=== PATIENT | female | born 1990 | race Caucasian/White ===

== ENCOUNTER 2017-02-17 15:05 | Emergency (ER) | payer BC, MEDICAID ==
[2017-02-17 15:05] VITALS: BMI 26.9
[2017-02-17 15:50] VITALS: O2SAT 99
--- NOTE | 2017-02-17 16:23 | C.PDOC ---
History Of Present Illness 26 yr old female presents to the ER with complaints of a headache for the past 3 days. States its intermittent, bilateral temporal. Patient states she gets headache once a week but current headache is more prolonged than usual, associated with nausea. Patient states no relief with Advil, 1tab. Reports last dose was yesterday. Otherwise, denies fever, vision changes, vomiting, neck pain , weakness or numbness. LOPEZ X 3 DAYS. INTERMIT B/L TEMPORAL. PS GETS LOPEZ ONCE A WEEK BUT CURRENT LOPEZ MORE PROLONGED THAN USUAL. +NAUSEA. NO RELIEVE W ALEVE 1 TAB. LAST DOSE YEST. 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 Time Seen by Provider: 02/17/17 16:03 Chief Complaint (Nursing): Headache History Per: Patient History/Exam Limitations: no limitations Onset/Duration Of Symptoms: Days (3) Current Symptoms Are (Timing): Still Present Past Medical History Reviewed: Historical Data, Nursing Documentation, Vital Signs Vital Signs: Last Vital Signs Temp 98.6 F 02/17/17 15:47 Pulse 82 02/17/17 15:47 Resp 18 02/17/17 15:47 BP 111/78 02/17/17 15:47 Pulse Ox 99 02/17/17 16:57 - Medical History PMH: Anemia - [facility] Procedures DELIVERY OF PRODUCTS OF CONCEPTION, EXTERNAL APPROACH (07/18/15) MANUAL ASSIST DELIV NEC (11/05/13) Family History: States: No Known Family Hx - Social History Hx Alcohol Use: No Hx Substance Use: No Review Of Systems Except As Marked, All Systems Reviewed And Found Negative. Constitutional: Negative for: Fever Eyes: Negative for: Vision Change Gastrointestinal: Positive for: Nausea. Negative for: Vomiting Musculoskeletal: Negative for: Neck Pain Neurological: Positive for: Headache. Negative for: Weakness, Numbness Physical Exam - Physical Exam Appears: Non-toxic, In Acute Distress (Mild) Eye(s): bilateral: Normal Inspection, PERRL, EOMI Ear(s): Bilateral: Normal Neck: Normal, Normal ROM, Supple Chest: Symmetrical, No Tenderness Cardiovascular: Rhythm Regular, No Murmur Respiratory: Normal Breath Sounds, No Rales, No Rhonchi, No Stridor, No Wheezing Extremity: Normal ROM, No Swelling Neurological/Psych: Oriented x3, Normal Speech, Normal Motor ED Course And Treatment O2 Sat by Pulse Oximetry: 99 (RA) Pulse Ox Interpretation: Normal - CT Scan/US CT - Head Other Rad Studies (CT/US): Read By Radiologist, Radiology Report Reviewed CT/US Interpretation: PROCEDURE: CT HEAD WITHOUT CONTRAST. HISTORY: HEADACHE. COMPARISON: None available. TECHNIQUE: Axial computed tomography images were obtained through the head/brain without intravenous contrast. Radiation dose: Total exam DLP = 754.32 mGy-cm. This CT exam was performed using one or more of the following dose reduction techniques: Automated exposure control, adjustment of the mA and/or kV according to patient size, and/ or use of iterative reconstruction technique. FINDINGS: HEMORRHAGE: No intracranial hemorrhage. BRAIN: No mass effect or edema. No atrophy or chronic microvascular ischemic changes. VENTRICLES: Unremarkable. No hydrocephalus. CALVARIUM: Unremarkable. PARANASAL SINUSES: Unremarkable as visualized. No significant inflammatory changes. MASTOID AIR CELLS: Unremarkable as visualized. No inflammatory changes. OTHER FINDINGS: None. IMPRESSION: No acute intracranial pathology identified. Reevaluation Time: 17:26 Reassessment Condition: Improved Medical Decision Making Medical Decision Making: PLAN: * CT - Head * POC * Imitrex SC * Reglan IM * Toradol IM Disposition Counseled Patient/Family Regarding: Studies Performed, Diagnosis, Need For Followup - Disposition Referrals: YOUR,PMD [Other] Disposition: HOME/ ROUTINE Disposition Time: 17:27 Condition: IMPROVED Instructions: Migraine Headache (ED) Forms: [employer] [facility] (Panamanian) - Clinical Impression Clinical Impression: Migraine - Scribe Statement The provider has reviewed the documentation as recorded by the Konstantin Marquis Provider Attestation: All medical record entries made by the Konstantin were at my direction and personally dictated by me. I have reviewed the chart and agree that the record accurately reflects my personal performance of the history, physical exam, medical decision making, and the department course for this patient. I have also personally directed, reviewed, and agree with the discharge instructions and disposition.
--- NOTE | 2017-02-17 16:55 | CT ---
PROCEDURE: CT HEAD WITHOUT CONTRAST. HISTORY: HEADACHE COMPARISON: None available. TECHNIQUE: Axial computed tomography images were obtained through the head/brain without intravenous contrast. Radiation dose: Total exam DLP = 754.32 mGy-cm. This CT exam was performed using one or more of the following dose reduction techniques: Automated exposure control, adjustment of the mA and/or kV according to patient size, and/or use of iterative reconstruction technique. FINDINGS: HEMORRHAGE: No intracranial hemorrhage. BRAIN: No mass effect or edema. No atrophy or chronic microvascular ischemic changes. VENTRICLES: Unremarkable. No hydrocephalus. CALVARIUM: Unremarkable. PARANASAL SINUSES: Unremarkable as visualized. No significant inflammatory changes. MASTOID AIR CELLS: Unremarkable as visualized. No inflammatory changes. OTHER FINDINGS: None. IMPRESSION: No acute intracranial pathology identified.
[2017-02-17 17:44] VITALS: BP 102/67; PULSE 69; RESP 20; TEMP 98
== END 2017-02-17 17:43 | disposition home or self-care (01) ==
LOC: C.ER 15:05
DX: G43.909 Migraine, unspecified, not intractable, without status migrainosus (principal)
CPT/HCPCS: 70450; 96372; 99284; J1885; J2765; J3030

== ENCOUNTER 2017-02-23 21:08 | Emergency (ER) | payer MEDICAID ==
[2017-02-23 21:08] VITALS: BMI 26.9
--- NOTE | 2017-02-23 21:41 | C.PDOC ---
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 Chief Complaint (Nursing): Chest Pain History Per: Patient History/Exam Limitations: no limitations Onset/Duration Of Symptoms: Mins Current Symptoms Are (Timing): Still Present Severity: Mild Quality: Sharp Past Medical History Reviewed: Historical Data, Nursing Documentation, Vital Signs Vital Signs: Last Vital Signs Temp 98.7 F 02/23/17 22:21 Pulse 76 02/23/17 22:21 Resp 18 02/23/17 22:21 BP 105/72 02/23/17 22:21 Pulse Ox 98 02/23/17 22:42 - Medical History PMH: No Chronic Diseases, Anemia, Anxiety, Migraine - [facility] Procedures DELIVERY OF PRODUCTS OF CONCEPTION, EXTERNAL APPROACH (07/18/15) MANUAL ASSIST DELIV NEC (11/05/13) Family History: States: No Known Family Hx - Social History Hx Alcohol Use: No Hx Substance Use: No Review Of Systems Except As Marked, All Systems Reviewed And Found Negative. Cardiovascular: Positive for: Chest Pain Respiratory: Negative for: Cough, Shortness of Breath, Hemoptysis Gastrointestinal: Negative for: Nausea, Vomiting Musculoskeletal: Negative for: Neck Pain, Shoulder Pain, Back Pain Neurological: Negative for: Weakness Psych: Positive for: Anxiety Physical Exam - Physical Exam Appears: Well Eye(s): bilateral: Normal Inspection, PERRL, EOMI Oral Mucosa: Moist Tongue: Normal Appearing Lips: Normal Appearing Throat: Normal Neck: Normal Lymphatic: Deferred Chest: Symmetrical, Tenderness Cardiovascular: Rhythm Regular Respiratory: Normal Breath Sounds Gastrointestinal/Abdominal: Normal Exam Extremity: Normal ROM Neurological/Psych: Oriented x3, Normal Speech, Normal Cognition, Normal Cranial Nerves, Normal Motor, Normal Sensation ED Course And Treatment ECG: Interpreted By Me ECG Rhythm: Sinus Rhythm ECG Interpretation: Normal Interpretation Of ECG: nsr at 88 BPM.Intervals wnl,axis wnl,no ectopy noted,st segments wnl.No old EKG's for comparison O2 Sat by Pulse Oximetry: 98 Medical Decision Making Medical Decision Making: pt is 26 yo with acute onset of reproducible CP_ that began 30 min ago after picking up her daughter.EKG is wnl,[facility]C rules make PE very unlikely Disposition Counseled Patient/Family Regarding: Diagnosis, Need For Followup - Disposition Referrals: [facility] [Outside] Disposition: HOME/ ROUTINE Disposition Time: 21:42 Condition: GOOD Additional Instructions: take motrin for pain,return for worsening pain Forms: [employer] (Trinidadian) - Clinical Impression Clinical Impression: Chest wall pain
[2017-02-23 22:30] VITALS: BP 105/72; PULSE 76; RESP 18; TEMP 98.7
[2017-02-23 22:39] VITALS: O2SAT 98
--- NOTE | 2017-02-25 11:56 | CARD ---
APPROVED REPORT EKG Measurement Heart [id number] CT 140P77 [id number] <Conclusion> Normal sinus rhythm Normal ECG
== END 2017-02-23 22:21 | disposition home or self-care (01) ==
LOC: C.ER 21:08
DX: R07.89 Other chest pain (principal)

== ENCOUNTER 2017-02-27 10:44 | Emergency (ER) | payer MEDICAID ==
[2017-02-27 10:44] VITALS: BMI 26.9
[2017-02-27 11:11] VITALS: RESP 16
--- NOTE | 2017-02-27 13:30 | C.PDOC ---
History Of Present Illness Patient is a 26 year old female who presents to the emergency department complaining of intermittent headaches for the past 3 weeks. Patient describes the headache starting at the back of the head and radiates forwards. She reports she was seen in [facility] ER and had a CT scan, which came negative, and was seen again for similar symptoms where she had an EKG done, which also came back negative. However, she states her medication for the headache pain is not working which prompted her visit to the ED. Patient denies chest pain, shortness of breath, numbness or weakness. PMD: Miguel Good Time Seen by Provider: 02/27/17 11:37 Chief Complaint (Nursing): Headache History Per: Patient History/Exam Limitations: no limitations Onset/Duration Of Symptoms: Days (x3 weeks) Current Symptoms Are (Timing): Still Present Recent travel outside of the [place]: No Past Medical History Reviewed: Historical Data, Nursing Documentation, Vital Signs Vital Signs: Last Vital Signs Temp 98.6 F 02/27/17 13:39 Pulse 78 02/27/17 13:39 Resp 16 02/27/17 13:39 BP 121/74 02/27/17 13:39 Pulse Ox 100 02/27/17 14:08 - Medical History PMH: Anemia, Anxiety, Migraine - [facility] Procedures DELIVERY OF PRODUCTS OF CONCEPTION, EXTERNAL APPROACH (07/18/15) MANUAL ASSIST DELIV NEC (11/05/13) Family History: States: Unknown Family Hx - Social History Hx Tobacco Use: No Hx Alcohol Use: No Hx Substance Use: No Review Of Systems Except As Marked, All Systems Reviewed And Found Negative. Cardiovascular: Negative for: Chest Pain Respiratory: Negative for: Shortness of Breath Neurological: Positive for: Headache (starts at the back of the head and radiates forward). Negative for: Weakness, Numbness Physical Exam - Physical Exam Appears: No Acute Distress, Other (Pt is anxious appearing and tearful) Skin: Normal Color, Warm, Dry Eye(s): bilateral: Normal Inspection, PERRL, EOMI Neck: Normal, Normal ROM, Supple Respiratory: Normal Breath Sounds Extremity: Normal ROM, No Deformity Neurological/Psych: Normal Speech, Normal Motor, Normal Sensation ED Course And Treatment O2 Sat by Pulse Oximetry: 100 (RA) Pulse Ox Interpretation: Normal Disposition - Disposition Referrals: Miguel Good MD [Staff Provider] - Disposition: HOME/ ROUTINE Disposition Time: 13:29 Condition: GOOD Additional Instructions: Follow up with the medical doctor within 1-2 days. Return if worsened. Prescriptions: hydrOXYzine HCl [Atarax] 25 mg PO HS #20 tab Metoclopramide [Reglan] 1 tab PO TID PRN #25 tab PRN Reason: Nausea/Vomiting Instructions: Depression (ED), Anxiety (ED) Forms: [employer] (Georgian) - POA Present On Arrival: None - Clinical Impression Clinical Impression: Headache - Scribe Statement The provider has reviewed the documentation as recorded by the Scribe Domingo Ozuna All medical record entries made by the Scribe were at my direction and personally dictated by me. I have reviewed the chart and agree that the record accurately reflects my personal performance of the history, physical exam, medical decision making, and the department course for this patient. I have also personally directed, reviewed, and agree with the discharge instructions and disposition.
[2017-02-27 13:40] VITALS: BP 121/74; PULSE 78; TEMP 98.6
[2017-02-27 14:03] VITALS: O2SAT 100
== END 2017-02-27 13:39 | disposition home or self-care (01) ==
LOC: C.ER 10:44
DX: R51 Headache (principal)

== ENCOUNTER 2017-04-06 19:13 | Emergency (ER) | payer BC, MEDICAID ==
[2017-04-06 19:13] VITALS: BMI 26.9
--- NOTE | 2017-04-06 20:13 | C.PDOC ---
History Of Present Illness Patient presents to ED with complaints of intermittent mid epigastric pain for 2 days with associated decreased appetite. Patient states "it feels like a knot " and reports pain is non radiating. Patient denies fever, chills, nausea, vomiting, diarrhea, urinary symptoms or any other complaints at this time. Time Seen by Provider: 04/06/17 20:13 Chief Complaint (Nursing): Abdominal Pain History Per: Patient History/Exam Limitations: no limitations Onset/Duration Of Symptoms: Days Current Symptoms Are (Timing): Still Present Severity: Mild Pain Scale Rating Of: 2 Location Of Pain/Discomfort: Epigastric Radiation Of Pain To:: None Quality Of Discomfort: Other ("knot") Associated Symptoms: Loss Of Appetite. denies: Fever, Chills, Nausea, Vomiting Exacerbating Factors: None Alleviating Factors: None Past Medical History Reviewed: Historical Data, Nursing Documentation, Vital Signs Vital Signs: Last Vital Signs Temp 97.4 F L 04/06/17 19:24 Pulse 68 04/06/17 19:24 Resp 20 04/06/17 19:24 BP 120/79 04/06/17 19:24 Pulse Ox 98 04/06/17 20:26 - Medical History PMH: Anemia, Anxiety, Migraine Surgical History: No Surg Hx - [facility] Procedures DELIVERY OF PRODUCTS OF CONCEPTION, EXTERNAL APPROACH (07/18/15) MANUAL ASSIST DELIV NEC (11/05/13) Family History: States: No Known Family Hx - Social History Hx Tobacco Use: No Hx Alcohol Use: No Hx Substance Use: No Review Of Systems Constitutional: Negative for: Fever, Chills Gastrointestinal: Positive for: Abdominal Pain. Negative for: Nausea, Vomiting , Diarrhea Genitourinary: Negative for: Dysuria, Hematuria Skin: Negative for: Rash Physical Exam - Physical Exam Appears: Non-toxic, No Acute Distress Skin: Warm, Dry, No Rash Head: Normacephalic Oral Mucosa: Moist Neck: Supple Cardiovascular: Rhythm Regular Respiratory: No Rales, No Rhonchi, No Wheezing Gastrointestinal/Abdominal: Soft, No Guarding, No Rebound, Other (Mid epigastric discomfort) Back: No CVA Tenderness Extremity: No Pedal Edema, Capillary Refill (<2 seconds) Neurological/Psych: Oriented x3 ED Course And Treatment - Laboratory Results Result Diagrams: 04/06/17 20:36 11/13/17 20:36 O2 Sat by Pulse Oximetry: 98 (RA) Pulse Ox Interpretation: Normal Reevaluation Time: 23:13 Reassessment Condition: Improved Disposition Counseled Patient/Family Regarding: Studies Performed, Diagnosis, Need For Followup - Disposition Referrals: Miguel Good MD [Staff Provider] - Disposition: HOME/ ROUTINE Disposition Time: 20:13 Condition: FAIR Instructions: Abdominal Pain (ED), Gas and Bloating (ED) Forms: [employer] (Kittitian) - Clinical Impression Clinical Impression: Abdominal pain - Scribe Statement The provider has reviewed the documentation as recorded by the Scribe Ivan Esqueda All medical record entries made by the Desiraeibe were at my direction and personally dictated by me. I have reviewed the chart and agree that the record accurately reflects my personal performance of the history, physical exam, medical decision making, and the department course for this patient. I have also personally directed, reviewed, and agree with the discharge instructions and disposition.
[2017-04-06 20:43] LABS: BASO % 0.4 % (0.0-2.0); EOS # 0.1 K/uL (0.0-0.7); EOS % 1.2 % (0.0-4.0); HEMATOCRIT 41.5 % (34.0-47.0); LYMPH # 1.8 K/uL (1.0-4.3); LYMPH % 20.1 % (20.0-40.0); MEAN CORPUSCULAR HEMOGLOBIN 28.7 pg (27.0-31.0); MEAN CORPUSCULAR HGB CONC 33.4 g/dL (33.0-37.0); MEAN PLATELET VOLUME 8.3 fL (7.2-11.7); MONO # 0.6 K/uL (0.0-0.8); MONO % 6.2 % (0.0-10.0); RED CELL DISTRIBUTION WIDTH 14.5 % (11.5-14.5); WHITE BLOOD COUNT 8.9 K/uL (4.8-10.8)
[2017-04-06 20:49] LABS: MEAN CELL VOLUME 86.1 fL (81.0-99.0)
[2017-04-06 20:52] LABS: CHLORIDE 100 mmol/L (98-107); POTASSIUM 3.9 mmol/L (3.6-5.2); SODIUM 137 mmol/L (132-148)
[2017-04-06 20:54] LABS: ALB/GLOB RATIO 1.6 (1.0-2.1); AST/SGOT 16 U/L (14-36); BILIRUBIN,TOTAL 0.9 mg/dL (0.2-1.3); CARBON DIOXIDE 28 mmol/L (22-30); GFR AFRICAN-AMERICAN > 60; TOTAL PROTEIN 7.4 g/dL (6.3-8.3)
[2017-04-06 20:55] LABS: ALKALINE PHOSPHATASE 69 U/L (38-126); ALT/SGPT 36 U/L (9-52); BLOOD UREA NITROGEN 10 mg/dL (7-17); CALCIUM 8.9 mg/dl (8.6-10.4); GLUCOSE,RANDOM 108 mg/dL (65-105)
[2017-04-06 21:00] LABS: RBC URINE 1 /hpf (0-3); TRANSITIONAL EPITHIAL 1 /hpf (0-3); URINE BACTERIA OCC (<OCC); URINE BILIRUBIN NEGATIVE (NEGATIVE); URINE BLOOD NEGATIVE (NEGATIVE); URINE COLOR Yellow (YELLOW); URINE GLUCOSE (UA) NORMAL (Normal); URINE KETONE NEGATIVE (NEGATIVE); URINE LEUKOCYTE ESTERASE TRACE Leu/uL (Negative); URINE PROTEIN 1+ mg/dL (NEGATIVE); URINE UROBILINOGEN NORMAL mg/dL (0.2-1.0); WBC URINE 9 /hpf (0-5)
[2017-04-06] MEDS ORDERED: Iodixanol 320 MG/ML 100 ML BOTTLE IV ONE ×2 (21:40→21:47)
--- NOTE | 2017-04-06 22:46 | CT ---
EXAM: CT Abdomen and Pelvis With Intravenous Contrast CLINICAL HISTORY: 26 years old, female; Pain; Abdominal pain; Generalized; Additional info: Abd pain TECHNIQUE: Axial computed tomography images of the abdomen and pelvis with intravenous contrast. All CT scans at this facility use one or more dose reduction techniques, viz.: automated exposure control; ma/kV adjustment per patient size (including targeted exams where dose is matched to indication; i.e. head); or iterative reconstruction technique. Coronal and sagittal reformatted images were created and reviewed. CONTRAST: 100 mL of visipaque administered intravenously. COMPARISON: No relevant prior studies available. FINDINGS: Lower thorax: The bilateral lung bases are clear. ABDOMEN: Liver: The liver is enlarged, and demonstrates diffuse fatty infiltration. Gallbladder and bile ducts: The gallbladder is decompressed. No calcified stones. No significant intra- or extrahepatic biliary ductal dilation. Pancreas: Enhances homogeneously. No ductal dilation. No discrete mass. Spleen: No acute findings. Adrenals: No acute findings. Kidneys and ureters: No acute findings. No hydronephrosis or renal calculi. No discrete solid mass. PELVIS: Bladder: No acute findings. Reproductive: No acute findings. Appendix: The appendix is not definitively visualized, however no pericecal inflammatory change is identified to suggest the presence of acute appendicitis. ABDOMEN and PELVIS: Stomach and bowel: No obstruction. No mucosal thickening. Peritoneum: No significant fluid collection. No free air. Lymph nodes: No pathologically enlarged lymph nodes. Vasculature: Unremarkable. Bones: No acute fracture. IMPRESSION: The appendix is not visualized, however no significant pericecal inflammation is detected, to suggest acute appendicitis. Fatty infiltration of an enlarged liver.
[2017-04-06 23:21] VITALS: BP 118/80; PULSE 77; RESP 16; TEMP 97.7; O2SAT 96
== END 2017-04-06 23:21 | disposition home or self-care (01) ==
LOC: C.ER 19:13
DX: R10.9 Unspecified abdominal pain (principal)
CPT/HCPCS: 36415; 74177; 80053; 81001; 83690; 84703; 85025; 96374; 96375; 99285; J2405; Q9967

== ENCOUNTER 2018-08-26 14:53 | Outpatient (CLI) | payer MEDICAID | END 2018-08-26 14:54 | disposition home or self-care (01) | LOC: C.USIC 14:53 | DX: R10.2 Pelvic and perineal pain (principal) ==